=== PATIENT | female | born 1950 | race African-American/Black ===

== ENCOUNTER 2017-09-02 07:04 | Inpatient (IN) | payer OTHER ==
[2017-09-02 07:25] VITALS: BMI 32.5
[2017-09-02 08:38] LABS: BASO % 0.9 % (0-2.0); EOS % 6.3 % (0-4.5); HEMATOCRIT 34.6 % (32.4-45.2); HEMOGLOBIN 11.2 GM/dL (10.7-15.3); LYMPH % 26.8 % (8-40); MCH 27.1 pg (25.7-33.7); MCHC 32.4 g/dl (32.0-36.0); MEAN CELL VOLUME 83.9 fl (80-96); MEAN PLT VOLUME 8.5 fl (7.5-11.1); MONO % 9.7 % (3.8-10.2); NEUT % 56.3 % (42.8-82.8); PLATELET COUNT 261 K/MM3 (134-434); RBC 4.12 M/mm3 (3.60-5.2); RDW 14.3 % (11.6-15.6)
--- NOTE | 2017-09-02 08:42 | PDOC ---
History of Present Illness - General Chief Complaint: Revisit, Lab Variance Stated Complaint: PCP: SENT/ LAB WORK Time Seen by Provider: 09/02/17 07:47 History Source: Patient Exam Limitations: No Limitations - History of Present Illness Initial Comments: 09/02/17 08:37 67-year-old female with history of aortic aneurysm with valve replacement last August was sent here by her PCP for positive blood cultures which were obtained on Tuesday after patient complaints of feeling fatigued and mildly dizzy. Patient recently had a UTI which she states completed the antibiotics for. Patient has no other complaints at this time including fever/chills. Patient is followed by Dr. Stephanie Marcum for primary care. Timing/Duration: unsure Severity: mild Associated Symptoms: reports: weakness Past History - Past Medical History Allergies/Adverse Reactions: Allergies Allergy/AdvReac Type Severity Reaction Status Date / Time Penicillins Allergy Verified 09/02/17 07:20 Home Medications: Ambulatory Orders Amlodipine Besylate [Norvasc -] 5 mg PO DAILY 04/02/15 Acetaminophen [Tylenol .Regular Strength -] 650 mg PO Q6H PRN #0 tablet Asthma: Yes (bronchitis) Cancer: No Cardiac Disorders: No CVA: No COPD: No CHF: No DVT: No Dementia: No Diabetes: No Disorders: No HTN: No (ON NORVASC PROPHYLACTICALLY FOR ANEURYSM X 5+ YEARS) Hypercholesterolemia: No Liver Disease: No Thyroid Disease: No - Surgical History Cardiac Surgery: Yes (AEORTIC VALVE REPLACEMENT) Neurologic Surgery: Yes (back sx) Orthopedic Surgery: Yes (rt toe) - Immunization History Immunization Up to Date: Yes (FLU AND PNA) - Suicide/Smoking/Psychosocial Hx Smoking History: Never smoked Have you smoked in the past 12 months: No Information on smoking cessation initiated: No Hx Alcohol Use: No Drug/Substance Use Hx: No Substance Use Type: None Hx Substance Use Treatment: No Patient Lives Alone: No Review of Systems - Review of Systems Able to Perform ROS?: No Constitutional: Yes: Malaise, Weakness HEENTM: No: Symptoms Reported Respiratory: No: Symptoms reported Cardiac (ROS): No: Symptoms Reported ABD/GI: No: Symptoms Reported : No: Symptoms Reported Musculoskeletal: No: Symptoms Reported Integumentary: No: Symptoms Reported Neurological: Yes: Weakness Hematologic/Lymphatic: Yes: See HPI *Physical Exam - Vital Signs Last Vital Signs Temp Pulse Resp BP Pulse Ox 98.2 F 67 18 152/84 98 09/02/17 07:20 09/02/17 07:20 09/02/17 07:20 09/02/17 07:20 09/02/17 08:05 - Physical Exam General Appearance: Yes: Nourished, Appropriately Dressed. No: Apparent Distress HEENT: positive: EOMI, PRASANNA. negative: Pale Conjunctivae Neck: positive: Normal Thyroid, Supple Respiratory/Chest: positive: Lungs Clear, Normal Breath Sounds. negative: Respiratory Distress, Accessory Muscle Use Cardiovascular: positive: Regular Rhythm, Regular Rate. negative: Murmur Gastrointestinal/Abdominal: positive: Soft. negative: Tenderness Extremity: positive: Normal Capillary Refill. negative: Pedal Edema Integumentary: positive: Normal Color, Warm, Moist Neurologic: positive: Motor Strength 5/5 (ambulatory) ED Treatment Course - LABORATORY CBC & Chemistry Diagram: 09/02/17 08:00 09/02/17 08:40 - RADIOLOGY Radiology Studies Ordered: Category Date Time Status CHEST X-RAY PORTABLE* [RAD] Stat Radiology 09/02/17 08:36 Ordered Medical Decision Making - Medical Decision Making 09/02/17 08:39 Patient sent here for evaluation of positive blood cultures that were obtained on Tuesday and resulted last night. Case discussed with patient's primary care physician Dr. Stephanie Marcum who states 2 bottles out of 4 were positive for gram positive cocci in clusters. Patient also with recent aortic valve replacement. Patient will be admitted to Dr. Cassia Osorio. Labs were sent and will consult ID . 09/02/17 09:[address] Quang Carvalho and will admit patient to [facility]. Awaiting fax from [facility] where patient had labs sent. 09/02/17 09:16 Laboratory Tests 09/02/17 09/02/17 08:00 08:20 WBC 6.0 Hgb 11.2 D Hct 34.6 D Neutrophils % 56.3 Urine Protein 1+ H Ur Leukocyte Esterase Negative Urine WBC (Auto) 1 Urine RBC (Auto) 1 *DC/Admit/Observation/Transfer Diagnosis at time of Disposition: Positive blood cultures - Discharge Dispostion Decision to Admit order: Yes - Referrals Referrals: Stephanie Marcum MD [Primary Care Provider] - - Patient Instructions - Post Discharge Activity
[2017-09-02 08:48] LABS: URINE APPEARANCE CLEAR; URINE BILIRUBIN NEGATIVE (<2.0 mg/dL); URINE COLOR YELLOW; URINE GLUCOSE (UA) NEGATIVE (NEGATIVE); URINE KETONE NEGATIVE (NEGATIVE); URINE LEUK ESTERASE NEGATIVE (NEGATIVE); URINE NITRITE NEGATIVE (NEGATIVE); URINE UROBILINOGEN NEGATIVE mg/dL (0.2-1.0)
[2017-09-02 08:52] LABS: URINE PROTEIN 1+ (NEGATIVE)
[2017-09-02 08:53] LABS: EPI CELLS RARE /HPF (FEW); URINE HYALINE CAST 27 /lpf; URINE MUCUS RARE
[2017-09-02 09:32] LABS: ALBUMIN 3.6 g/dl (3.4-5.0); ANION GAP 9 (8-16); BILIRUBIN,TOTAL 0.3 mg/dL (0.2-1.0); BLOOD UREA NITROGEN 24 mg/dL (7-18); CALCIUM 9.1 mg/dL (8.5-10.1); CHLORIDE 107 mmol/L (98-107); CO2 23 mmol/L (21-32); CREATININE 1.1 mg/dL (0.55-1.02); GLUCOSE,RANDOM 89 mg/dL (74-106); SODIUM 139 mmol/L (136-145)
[2017-09-02 09:33] LABS: INR 2.19 (0.82-1.09); PROTHROMBIN TIME (PATIENT) 24.8 SEC (9.7-13.0)
[2017-09-02 09:34] LABS: ALK PHOS 79 U/L (45-117); SGPT/ALT 22 U/L (12-78); TOT PROT 8.1 g/dl (6.4-8.2)
[2017-09-02 09:35] LABS: SGOT/AST 36 U/L (15-37)
--- NOTE | 2017-09-02 09:37 | EKG ---
Test Reason : Blood Pressure : / mmHG Vent. Rate : 063 BPM Atrial Rate : 063 BPM P-R Int : 174 ms QRS Dur : 148 ms QT Int : 458 ms P-R-T Axes : 044 -74 084 degrees QTc Int : 468 ms SINUS RHYTHM WITH PREMATURE SUPRAVENTRICULAR COMPLEXES LEFT AXIS DEVIATION LEFT BUNDLE BRANCH BLOCK ABNORMAL ECG Confirmed by MERLIN HORNE MD ([id number]) on 09/02/2017 9:36:51 AM Referred By: Confirmed By:MERLIN HORNE MD
--- NOTE | 2017-09-02 10:51 | HP ---
Admitting History and Physical - Primary Care Physician PCP: Quang Osorio - Admission Chief Complaint: Positive blood cultures History of Present Illness: Pt with significant PMHx/o Aortic Ascending Aneurysm Sx and Bioprosthetic Aortic Valve Replacement (August [address] [facility]) and A Fib ( developed post surgery, on AC), recent UTI (treated with antibiotic), was referred by her PCP (Dr. Shana Marcum) to ER for positive BCX evaluation and treatment. Pt recently c/o weakness, dizziness when walking; no fever, chills, palpitations, CP. History Source: Patient Limitations to Obtaining History: No Limitations - Past Medical History Cardiovascular: Yes: AFIB, Other (Aortic aneurysm, s/p Sx) Pulmonary: Yes: Bronchitis Gastrointestinal: Yes: GI Bleed (Rectal bleed), Other (colon polyps) Heme/Onc: Yes: Anemia (secondary to GIB) - Past Surgical History Past Surgical History: Yes: Upper Endoscopy Additional Past Surgical History: Ascending Aortic Aneurysm Repair and AVR (August 2016) - Smoking History Smoking history: Never smoked Have you smoked in the past 12 months: No - Alcohol/Substance Use Hx Alcohol Use: No History of Substance Use: reports: None Home Medications - Allergies Allergies/Adverse Reactions: Allergies Allergy/AdvReac Type Severity Reaction Status Date / Time Penicillins Allergy Verified 09/02/17 07:20 - Home Medications Home Medications: Ambulatory Orders Aspirin [ASA -] 81 mg PO HS 09/02/17 Famotidine 20 mg PO BID 09/02/17 Ibuprofen 600 mg PO Q8H PRN 09/02/17 Losartan Potassium 25 mg PO DAILY 09/02/17 Metoprolol Succinate 25 mg PO DAILY 09/02/17 Multivitamin [Daily Multiple Vitamin] 1 each PO DAILY 09/02/17 Warfarin Na [Coumadin -] 8 mg PO HS 09/02/17 Family Disease History - Family Disease History Family Disease History: CA: Father (colon,"kidney cancer"), Mother (colon, pancreatic ca) Review of Systems - Review of Systems Constitutional: reports: Weakness. denies: Chills, Fever, Night Sweats Eyes: denies: Blurred Vision, Double Vision HENT: denies: Ear Discharge, Ear Pain, Nasal Congestion, Throat Pain, Toothache Neck: denies: Stiffness, Tenderness Cardiovascular: denies: Chest Pain, Edema, Palpitations Respiratory: denies: Cough, Hemoptysis, SOB on Exertion Gastrointestinal: denies: Abdominal Pain, Diarrhea, Nausea, Vomiting Genitourinary: denies: Burning, Discharge Musculoskeletal: denies: Back Pain, Joint Swelling, Muscle Pain Integumentary: denies: Bruising, Rash Neurological: denies: Change in LOC, Incoordination, Numbness Endocrine: denies: Excessive Sweating, Intolerance to Cold Hematology/Lymphatic: denies: Easily Bruised, Excessive Bleeding Psychiatric: denies: Anxiety, Depression Physical Examination Vital Signs: Vital Signs Temperature 98.2 F 09/02/17 07:20 Pulse Rate 67 09/02/17 07:20 Respiratory Rate 18 09/02/17 07:20 Blood Pressure 152/84 09/02/17 07:20 O2 Sat by Pulse Oximetry (%) 98 09/02/17 08:05 Constitutional: Yes: No Distress, Calm Eyes: Yes: Conjunctiva Clear, EOM Intact, PERRL HENT: No: Nasal Congestion, Pharyngeal Erythema, Rhinnorhea, Thrush Neck: Yes: Trachea Midline. No: Lymphadenopathy Cardiovascular: Yes: Regular Rate and Rhythm, S1, S2 Respiratory: Yes: Regular, CTA Bilaterally. No: Rales Gastrointestinal: Yes: Normal Bowel Sounds, Soft. No: Hepatomegaly, Tenderness , Vomiting ...Rectal Exam: Yes: Deferred Renal/: No: CVA Tenderness - Left, CVA Tenderness - Right Breast(s): Yes: Other (deferred) Musculoskeletal: No: Back Pain, Joint Stiffness, Joint Swelling Extremities: No: Cold, Cool, Cyanosis Edema: No Integumentary: No: Erythema, Rash Neurological: Yes: Alert, Oriented, Other (motor and sensory examination is symmetric in UE/ LE/ face) Labs: CBC, BMP 09/02/17 08:00 09/02/17 08:40 Imaging - Results Chest X-ray: Report Reviewed Problem List - Problems (1) Positive blood cultures Code(s): R78.81 - BACTEREMIA (2) H/O aortic valve replacement Code(s): Z95.2 - PRESENCE OF PROSTHETIC HEART VALVE (3) S/P ascending aortic aneurysm repair Code(s): Z98.890 - OTHER SPECIFIED POSTPROCEDURAL STATES; Z86.79 - PERSONAL HISTORY OF OTHER DISEASES OF THE CIRCULATORY SYSTEM (4) Penicillin allergy Code(s): Z88.0 - ALLERGY STATUS TO PENICILLIN Assessment/Plan Repeate BCX ID consult- case was d/w Dr. Briggs; IV abtx (Vanco) Cardio Consult To monitor INR ECHO To obtain records from Dr. Marcum office AM labs
[2017-09-02] MEDS ORDERED: VANCOMYCIN 1 GRAM (PRE-DOCKED) 1,000 MG/250 ML BAG IVPB ONE (11:41)
[2017-09-02] MEDS ORDERED: VANCOMYCIN 1,500 MG in DEXTROSE 5%-WATER - 500 ML IVPB ONE (12:00)
--- NOTE | 2017-09-02 12:15 | PN ---
Progress Note (short form) - Note Progress Note: ID consult to follow Seen in ED sent by PMD for +blood culture- drawn at [facility] on Tuesday- apparently gpc clusters 2 bottles, further info and fax are pending she has a history of +AVR and aortic aneurysm repair August 2016 at [facility] with Dr Ramsay has felt fatigued since the prodedure she has been feeling weaker then usual with sob with stairs and dizziness with walking this last week she was seen by her Business Development Specialist on Tuesday for INR check- blood cultures were ordered at that time no fevers or chills no skin sores no dental work penicillin allergy- itchy and hives recent cefuroxime po for UTI about 2 weeks ago r/o endocarditis history of prosthetic aortic valve, aortic aneurysm repair repeat blood cultures have been sent esr/crp will start vancomycin while awaiting further information echo ekg cardiology to see d/w dr handley d/w cardiology Problem List - Problems (1) Positive blood cultures Code(s): R78.81 - BACTEREMIA (2) History of prosthetic aortic valve Code(s): Z95.2 - PRESENCE OF PROSTHETIC HEART VALVE (3) Penicillin allergy Code(s): Z88.0 - ALLERGY STATUS TO PENICILLIN
--- NOTE | 2017-09-02 14:51 | CON.CARD ---
Cardiology Consult (text) - Consultation Consultation Note: CC: r/o endocarditis 67 yo with hx of aortic aneurysm with valve replacement c/b post-op afib on coumadin, htn, LBBB, bronchitis and recent UTI this month s/p abx course who presents with + blood cultures. chronic agarwal, fatigue since surgery, palps, stable. Patient with hot flashes x 2. +dizziness, unstable gait x 2 weeks. 2 weeks treated for uti with abx. Had blood cx's drawn b/c of sx's of ongoing dizziness --> positive for gram + cocci. unclear how many bottles. Denies cp, orthopnea, pnd, le edema, bleeding, claudication or transient neurologic symptoms Denies f/c, n/v/d, cough, congestion, rash, h/a, visual disturbances. pmhx/pshx: per hpi, additionally toe surgery and back surgery fam hx: no cardiac history social hx; Never smoked ros: per hpi Ambulatory Orders Aspirin [ASA -] 81 mg PO HS 09/02/17 Famotidine 20 mg PO BID 09/02/17 Ibuprofen 600 mg PO Q8H PRN 09/02/17 Losartan Potassium 25 mg PO DAILY 09/02/17 Metoprolol Succinate 25 mg PO DAILY 09/02/17 Multivitamin [Daily Multiple Vitamin] 1 each PO DAILY 09/02/17 Warfarin Na [Coumadin -] 8 mg PO HS 09/02/17 Current Medications Vancomycin HCl 1,250 mg/ (Dextrose) 250 mls @ 250 mls/2 hr IVPB DAILY@1200 KHALIF ; Protocol Vital Signs - 24 hr 09/02/17 09/02/17 09/02/17 07:20 08:05 13:39 Temperature 98.2 F 98.9 F Pulse Rate 67 66 Respiratory 18 20 Rate Blood Pressure 152/84 143/95 O2 Sat by Pulse 100 98 Oximetry (%) 09/02/17 13:52 Temperature Pulse Rate Respiratory Rate Blood Pressure O2 Sat by Pulse 96 Oximetry (%) Intake & Output 08/31/17 09/01/17 09/02/17 09/03/17 07:59 07:59 07:59 07:59 Weight 196 lb 196 lb NAD, calm JVD flat, neck supple ctab, nl effort rrr nl s1, s2. no 2/6 sys murmur at sternal border + bs soft nt nd ext without e/c/c + dp/pt, no carotid bruits no jaundice, diaphoresis aaox3 CBC, BMP 09/02/17 08:00 09/02/17 08:40 Laboratory Tests 09/02/17 09/02/17 09/02/17 08:00 08:40 08:40 INR 2.19 H Lactic Acid 1.5 Total Bilirubin 0.3 D AST 36 ALT 22 Alkaline Phosphatase 79 Albumin 3.6 EKG LBBB Echo: EF 50-55%. nl rv size/fn. 1+ mr/tr. bioprosthetic aortic valve, mg 17. cxr: no acute pathology post-op echo MSH: bio avr (2.4, 10/02) 67 yo with hx of aortic aneurysm with valve replacement 08/2016, c/b post-op afib on coumadin, htn, LBBB, bronchitis and recent UTI this month s/p abx course who presents with + blood cultures. bioavr with + bcx - resume asa - check esr/crp - awaiting further information from [facility] regarding details of blood cultures and ID input on suspicion for endocarditis/need for ROBERT. afib - currently in sr, rate controlled. - con't coumadin per pmd/inr. htn - monitor on current outpatient regimen.
[2017-09-02] MEDS ORDERED: IBUPROFEN 600 MG TABLET (FP) PO PRN (16:58)
[2017-09-02] MEDS ORDERED: WARFARIN NA 5 MG, WARFARIN NA 3 MG PO SCH (18:00)
[2017-09-02] MEDS ORDERED: WARFARIN NA 3 MG TABLET ONE (18:00)
[2017-09-02] MEDS ORDERED: WARFARIN NA 5 MG TABLET (UD) ONE (18:00)
--- NOTE | 2017-09-02 18:46 | CONS ---
INFECTIOUS DISEASE CONSULTATION DATE OF CONSULTATION: 09/02/2017 REQUESTING PHYSICIAN: Quang Osorio MD This is a 67-year-old woman who was sent to the emergency room by her PMD for positive blood cultures which were drawn at the [facility] on Tuesday, apparently gram-positive cocci in clusters in 2 bottles. Further information and facts are pending. She has a history of an aortic valve replacement and aortic aneurysm repair in August 2016 at [facility] with Dr. Ramsay. She has felt fatigued since the procedure. For the last week, she has been feeling weaker than usual with shortness of breath with stairs and dizziness with walking. She was seen by her private investigator surveillance, at [facility] on Tuesday for an INR check. Blood cultures were ordered at that time, and she was called by her PMD and referred to the ER. She denies any fevers or chills. She has no skin sores. She has had no dental work. She had some dental work prior to the surgery in August but has not gone for any since that time. She reports an allergy to PENICILLIN which she describes as being itchy and having hives, although recently she took cefuroxime orally for a UTI about 2 weeks ago. It was prescribed by her private investigator surveillance. PAST MEDICAL HISTORY: Notable for a history of this aortic aneurysm, bronchitis, and colon polyps. SURGICAL HISTORY: For the aortic valve replacement as well as aneurysm repair. In 2007, she also had back surgery. ALLERGIES: She is allergic to PENICILLIN as mentioned before. MEDICATIONS AT HOME: Include famotidine, multivitamins, warfarin, aspirin, ibuprofen, metoprolol, and losartan. FAMILY HISTORY: Noncontributory. SOCIAL HISTORY: She lives alone. She is . She has 2 adult children. There is no history of any recent travel. PHYSICAL EXAMINATION: General: She is awake and alert. Vital Signs: Temperature is 98.2, pulse of 67, blood pressure 152/84, respiratory rate of 18. Her stated weight is 89.9 kg. She is saturating 100% on room air. HEENT: She is normocephalic. Her eyes are anicteric. She has no conjunctival hemorrhages. She has no thrush. She has some poor dentition. Heart: Regular rate and rhythm. She has a 2/6 systolic ejection murmur on the left upper sternal border. She has a well-healed sternal scar. Lungs: Clear to auscultation. Abdomen: Soft, nontender. Extremities: Without edema. LABORATORY DATA: Her labs are notable for a white count of 6, hemoglobin 11.2, platelets are 261. INR is 2.1. BUN is 24 and creatinine 1.1 with normal LFTs. Urinalysis has 1 white cell. Blood cultures and urine cultures have been sent. Chest x-ray shows no acute chest pathology. In summary, this is a 67-year-old woman with a history of aortic valve replacement and aneurysm repair, who was admitted with positive blood cultures, rule out endocarditis. Repeat blood cultures have been sent. We will check a sedimentation rate, CRP. We will start vancomycin while awaiting further information. She needs an echo, an EKG, and a cardiology evaluation. This was all discussed with Dr. Osorio as well as Cardiology. Further recommendations to follow based on her clinical course. PRESTON TANG M.D. [id number]
[2017-09-02] MEDS: RANITIDINE HCL 150 MG TABLET (FP) PO SCH (21:25)
[2017-09-02] MEDS ORDERED: ASPIRIN 81 MG CHEWABLE TABLETS PO SCH (22:00)
[2017-09-02] MEDS ORDERED: WARFARIN NA 1 MG TABLET (FP) PO SCH (22:00)
[2017-09-03] MEDS ORDERED: VANCOMYCIN 1,250 MG in DEXTROSE 5%-WATER - 250 ML IVPB SCH ×2 (03:00→10:00)
[2017-09-03 08:05] LABS: HEMATOCRIT 34.4 % (32.4-45.2); HEMOGLOBIN 11.3 GM/dL (10.7-15.3); MCH 27.2 pg (25.7-33.7); MCHC 32.9 g/dl (32.0-36.0); MEAN CELL VOLUME 82.6 fl (80-96); MEAN PLT VOLUME 8.1 fl (7.5-11.1); PLATELET COUNT 254 K/MM3 (134-434); RBC 4.17 M/mm3 (3.60-5.2); RDW 14.2 % (11.6-15.6); WHITE BLOOD COUNT 5.9 K/mm3 (4.0-10.0)
[2017-09-03 08:29] LABS: INR 2.26 (0.82-1.09); PROTHROMBIN TIME (PATIENT) 25.5 SEC (9.7-13.0)
[2017-09-03 08:39] LABS: ALBUMIN 3.4 g/dl (3.4-5.0); ANION GAP 6 (8-16); BLOOD UREA NITROGEN 22 mg/dL (7-18); CALCIUM 9.2 mg/dL (8.5-10.1); CHLORIDE 106 mmol/L (98-107); CO2 29 mmol/L (21-32); GLUCOSE,RANDOM 90 mg/dL (74-106); POTASSIUM 4.6 mmol/L (3.5-5.1); SGOT/AST 19 U/L (15-37); SGPT/ALT 19 U/L (12-78); SODIUM 141 mmol/L (136-145)
[2017-09-03 08:41] LABS: ALK PHOS 75 U/L (45-117); BILIRUBIN,TOTAL 0.3 mg/dL (0.2-1.0); TOT PROT 7.5 g/dl (6.4-8.2)
--- NOTE | 2017-09-03 09:29 | PN ---
Progress Note, Physician Chief Complaint: positive blood cultures, night sweats History of Present Illness: 67 yo female here for positive blood cultures. sees dr marcum pmd at [facility], and kierra documentation billing clerk there. was referred for bio-AVR and ascending aorta repair 08/2016, done by Buster Dee. approx one mo ago she began noticing fatigue and night sweats. she also began noting intermittent sob on exertion, e.g. stairs, with assctd wheezing--but not consistent, mostly if walks fast. had outpt blood cultures last week which grew gpc in clusters in 2 of 4 bottles. she was told to come in for admission and w/u. presently feels well. she denies any sob at rest, orthopnea. denies leg swelling. denies chest pain, palpitations, syncope PMH: HTN afib bronchitis - Current Medication List Current Medications: Active Medications Aspirin (Asa -) 81 mg PO HS [facility] Last Admin: 09/02/17 21:25 Dose: 81 mg Vancomycin HCl 1,250 mg/ (Dextrose) 250 mls @ 166.667 mls/hr IVPB Q12H [facility]; Protocol Last Admin: 09/03/17 02:11 Dose: 166.667 mls/hr Ibuprofen (Motrin -) 600 mg PO Q8H PRN PRN Reason: arthritic pain Losartan Potassium (Cozaar -) 25 mg PO DAILY [facility] Metoprolol Succinate (Toprol Xl -) 25 mg PO DAILY [facility] Multivitamins/Minerals/Vitamin C (Tab-A-Vit -) 1 tab PO DAILY [facility] Ranitidine HCl (Zantac -) 150 mg PO BID [facility] Last Admin: 09/02/17 21:25 Dose: 150 mg Warfarin Sodium 5 mg/ Warfarin (Sodium 3 mg) 8 mg PO DAILY@1800 [facility] Last Admin: 09/02/17 18:12 Dose: 8 mg - Objective Vital Signs: Vital Signs Temperature 97.8 F 09/03/17 06:18 Pulse Rate 73 09/03/17 06:18 Respiratory Rate 20 09/03/17 06:18 Blood Pressure 138/68 09/03/17 06:18 O2 Sat by Pulse Oximetry (%) 98 09/02/17 21:00 Constitutional: Yes: No Distress, Calm Eyes: No: Sclera Icterus HENT: No: Nasal Congestion Cardiovascular: Yes: Regular Rate and Rhythm, Murmur (2/6 early JESUS lusb, no diast murmur), S1, S2, Other (PMI non diplaced). No: JVD, Gallop Respiratory: Yes: CTA Bilaterally. No: Accessory Muscle Use, Rales, Wheezes Gastrointestinal: Yes: Normal Bowel Sounds, Soft. No: Tenderness Musculoskeletal: Yes: Other (No kyphosis) Extremities: No: Cold, Cyanosis Edema: No Integumentary: No: Jaundice Neurological: Yes: Alert, Oriented (x3) Psychiatric: No: Agitated Labs: CBC, BMP 09/03/17 07:30 09/03/17 07:30 INR, PTT INR 2.26 (0.82-1.09) H 09/03/17 07:30 Assessment/Plan EKG: LBBB, new vs 2015 Echo: EF 50-55%. nl rv size/fn. 1+ mr/tr. bioprosthetic aortic valve, mg 17-- NO VEGETATION SEEN, NO AI post-op Echo MSH: bio avr (2.4, 10/02) cxr: no acute pathology 67 yo with hx of aortic aneurysm with valve replacement 08/2016, c/b post-op afib on coumadin, HTN, LBBB, bronchitis and recent UTI this month s/p abx course who presents with + blood cultures. h/o bioavr with + bcx - outpt BCx's with Dr. Marcum (pmd) at [facility] reportedly growing gpc clusters 2 bottles--ID service awaiting final organism identification - s/p bioAVR and aortic aneurysm repair August 2016 at [facility] with Dr Dee ( who is no longer at [facility]) - LBBB on ekg here, new vs 2016--? if truly new (which can be seen in cases of paravalvular abscess affecting conduction system) - continue tele monitoring, no AV block/bradyarrhythmia seen thus far - pt needs ROBERT to assess bioAVR leaflets and paravalvular tissue, including isthmus btw AV and MV, as well as to assess aorta graft region for signs of infection. may need MRI or PET to look for evidence of aorta graft thickening/ infection. - if she remains without signs of CHF, peripheral embolic, or hemodynamics suggesting pre-cardiogenic shock state, would prefer to transfer pt to tertiary center for these studies (including ROBERT, which can be very difficult to make definitive dx on, in light of post-surgical changes/suture material, as well as shadowing...prefer not to have her undergo this study twice if safe to wait) - discussed case with dr dee, pt's original surgeon, but he has left the area and is [place]. he recommends dr martino at [facility] for this evaluation ( and reop, if needed) given his expertise in endocarditis surgery. case d/w'd dr martino who agrees to accept patient for transfer. - will transfer pt to telemetry - CRP undetectable, ESR 30s--makes paravalvular abscess or intravascular infection less likely. no Janeway lesions/Osler's nodes - she is on aspirin for valve prophylaxis, despite also being on coumadin for afib--unclear that bioprosthetic valve requires both agents, but will defer to her outpt documentation billing clerk and not change prior treatment plan afib - currently in sr, rate controlled. - con't coumadin per pmd/inr. htn - reasonably controlled bp here - cont home meds
[2017-09-03] MEDS ORDERED: PT OWN MED DRAWER 7, Y5N ONE (09:40)
[2017-09-03] MEDS: RANITIDINE HCL 150 MG TABLET (FP) PO SCH (09:50)
[2017-09-03] MEDS ORDERED: LOSARTAN POTASSIUM 25 MG TABLET PO SCH (10:00)
[2017-09-03] MEDS ORDERED: metoPROLOL SUCCINATE 25 MG TAB.SR.24H (FP) PO SCH (10:00)
[2017-09-03] MEDS ORDERED: MULTIVITAMINS (DAILY MVI) TABLET (FP) PO SCH (10:00)
[2017-09-03 10:07] VITALS: PULSE 68
--- NOTE | 2017-09-03 11:04 | PN ---
Progress Note (short form) - Note Progress Note: now gives history of night sweats for the last month! clinically feels well today Vital Signs Period Temp Pulse Resp BP Sys/Lea Pulse Ox Last 24 Hr 97.8 F-98.9 F 54-73 18-20 132-155/68-95 96-99 cor-rrr lungs clear abd soft,nt ext no edema no stigmata of endocarditis on exam- hands/feet/eyes without lesions CBC, BMP 09/03/17 07:30 09/03/17 07:30 Laboratory Tests 09/03/17 09/03/17 07:30 07:30 ESR 37 H C-Reactive Protein < 0.3 Microbiology 09/02/17 08:20 Urine - Urine Clean Catch Urine Culture - Final NO GROWTH OBTAINED 09/02/17 08:11 Blood - Peripheral Venous Blood Culture - Preliminary NO GROWTH OBTAINED AFTER 24 HOURS, INCUBATION TO CONTINUE FOR 4 DAYS. 09/02/17 08:00 Blood - Peripheral Venous Blood Culture - Preliminary NO GROWTH OBTAINED AFTER 24 HOURS, INCUBATION TO CONTINUE FOR 4 DAYS. a/p r/o endocarditis history of prosthetic aortic valve, aortic aneurysm repair repeat blood cultures have been sent esr/crp-normal continue vancomycin while awaiting further information outpatient blood cultures still pending d/w Dr Strickland- for transfer to [place] where surgery was done Problem List - Problems (1) Positive blood cultures Code(s): R78.81 - BACTEREMIA (2) History of prosthetic aortic valve Code(s): Z95.2 - PRESENCE OF PROSTHETIC HEART VALVE (3) Penicillin allergy Code(s): Z88.0 - ALLERGY STATUS TO PENICILLIN
--- NOTE | 2017-09-03 12:14 | PN ---
Progress Note, Physician History of Present Illness: Pt states that is less tired today. Pt w/o SOB, CP, palpitations, dizziness, abd pain. - Current Medication List Current Medications: Active Medications Aspirin (Asa -) 81 mg PO HS [facility] Last Admin: 09/02/17 21:25 Dose: 81 mg Vancomycin HCl 1,250 mg/ (Dextrose) 250 mls @ 166.667 mls/hr IVPB Q12H [facility]; Protocol Last Admin: 09/03/17 02:11 Dose: 166.667 mls/hr Ibuprofen (Motrin -) 600 mg PO Q8H PRN PRN Reason: arthritic pain Losartan Potassium (Cozaar -) 25 mg PO DAILY [facility] Last Admin: 09/03/17 09:50 Dose: 25 mg Metoprolol Succinate (Toprol Xl -) 25 mg PO DAILY [facility] Last Admin: 09/03/17 09:50 Dose: 25 mg Multivitamins/Minerals/Vitamin C (Tab-A-Vit -) 1 tab PO DAILY [facility] Last Admin: 09/03/17 09:50 Dose: 1 tab Ranitidine HCl (Zantac -) 150 mg PO BID [facility] Last Admin: 09/03/17 09:50 Dose: 150 mg Warfarin Sodium 5 mg/ Warfarin (Sodium 3 mg) 8 mg PO DAILY@1800 [facility] Last Admin: 09/02/17 18:12 Dose: 8 mg - Objective Vital Signs: Vital Signs Temperature 97.8 F 09/03/17 06:18 Pulse Rate 68 09/03/17 09:00 Respiratory Rate 18 09/03/17 09:00 Blood Pressure 132/94 09/03/17 09:00 O2 Sat by Pulse Oximetry (%) 99 09/03/17 09:00 Constitutional: Yes: No Distress, Calm Cardiovascular: Yes: Regular Rate and Rhythm, S1, S2 Respiratory: Yes: Regular, CTA Bilaterally. No: Rales Gastrointestinal: Yes: Normal Bowel Sounds, Soft. No: Tenderness Edema: No Neurological: Yes: Alert, Oriented Labs: CBC, BMP 09/03/17 07:30 09/03/17 07:30 INR, PTT INR 2.26 (0.82-1.09) H 09/03/17 07:30 Problem List - Problems (1) Positive blood cultures Code(s): R78.81 - BACTEREMIA (2) H/O aortic valve replacement Assessment/Plan: bioprosthetic valve Code(s): Z95.2 - PRESENCE OF PROSTHETIC HEART VALVE (3) S/P ascending aortic aneurysm repair Code(s): Z98.890 - OTHER SPECIFIED POSTPROCEDURAL STATES; Z86.79 - PERSONAL HISTORY OF OTHER DISEASES OF THE CIRCULATORY SYSTEM (4) Penicillin allergy Code(s): Z88.0 - ALLERGY STATUS TO PENICILLIN (5) Atrial fibrillation Assessment/Plan: on AC Code(s): I48.91 - UNSPECIFIED ATRIAL FIBRILLATION Assessment/Plan Pt now transferred to Telemetry BCX negative so far ID, Cardio consults and f/u appreciated. Pt on IV Vanco. Case was d/w ; to transfer pt to [facility] for further evaluation. AM labs; monitor INR.
[2017-09-03 14:02] VITALS: BP 154/88; TEMP 98.6
== END 2017-09-03 16:16 | disposition short-term general hospital (02) | DRG 307 ==
LOC: JER 07:04 → JERBED 09:13 → J5S 14:05 → J4W 09-03 12:14
PROVIDERS: ADMIT Specialist; ATTEND Specialist
DX: I38 Endocarditis, valve unspecified (principal); R78.81 Bacteremia; Z95.2 Presence of prosthetic heart valve; I10 Essential (primary) hypertension; I44.7 Left bundle-branch block, unspecified; I48.91 Unspecified atrial fibrillation; Z88.0 Allergy status to penicillin
CPT/HCPCS: 36415; 71045-TC-FY; 80053; 81003; 81015; 83605; 85025; 85027; 85610; 85651; 86140; 87040; 87086; 93005; 93010; 93306-TC; 99284-25; G0480

== ENCOUNTER 2018-03-20 14:36 | Emergency (ER) | payer OTHER ==
--- NOTE | 2018-03-20 14:44 | PDOC ---
Rapid Medical Evaluation Chief Complaint: Pain Medical Evaluation: Allergies Allergy/AdvReac Type Severity Reaction Status Date / Time Penicillins Allergy Verified 09/02/17 07:20 03/20/18 14:43 pt with pain to left knee felt a clicking sensation yesterday.
[2018-03-20 14:45] VITALS: BP 126/73; PULSE 80; TEMP 98.2; BMI 32.9
--- NOTE | 2018-03-20 15:20 | PDOC ---
History of Present Illness - General Chief Complaint: Pain Stated Complaint: Injury Time Seen by Provider: 03/20/18 15:18 History Source: Patient Exam Limitations: No Limitations - History of Present Illness Initial Comments: 03/20/18 15:31 Came for evaluation of left knee pain. States was traveling yesterday and while getting up and down from airplane seat felt a crack in her left knee and had difficulty straightening it since that time. Denies any significant injury/fall or exercise change. Denies fevers, redness infectious process. Occurred: reports: yesterday Severity: reports: moderate, severe Pain Location: reports: lower extremity (left knee ) Method of Injury: Yes: unknown Modifying Factors: improves with: None Loss of Consciousness: no loss of consciousness Associated Symptoms (Fall): denies symptoms Past History - Travel Traveled outside of the country in the last 30 days: No Close contact w/someone who was outside of country & ill: No - Past Medical History Allergies/Adverse Reactions: Allergies Allergy/AdvReac Type Severity Reaction Status Date / Time Penicillins Allergy Verified 03/20/18 14:45 Home Medications: Ambulatory Orders Aspirin [ASA -] 81 mg PO HS 09/02/17 Famotidine 20 mg PO BID 09/02/17 Losartan Potassium 25 mg PO DAILY 09/02/17 Metoprolol Succinate 25 mg PO DAILY 09/02/17 Multivitamin [Daily Multiple Vitamin] 1 each PO DAILY 09/02/17 Warfarin Na [Coumadin -] 8 mg PO HS 09/02/17 Anemia: No Asthma: No (bronchitis) Cancer: No Cardiac Disorders: Yes (aortic valve 08/2016) CVA: No COPD: No CHF: No DVT: No Dementia: No Diabetes: No GI Disorders: No Disorders: No HTN: Yes Hypercholesterolemia: No Liver Disease: No Seizures: No Thyroid Disease: No - Surgical History Abdominal Surgery: No Appendectomy: No Cardiac Surgery: Yes (AORTIC VALVE REPLACEMENT) Cholecystectomy: No Lung Surgery: No Neurologic Surgery: Yes (back sx) Orthopedic Surgery: Yes (left toe bonion/hammer toe) - Immunization History Immunization Up to Date: Yes (FLU AND PNA) - Suicide/Smoking/Psychosocial Hx Smoking History: Never smoked Have you smoked in the past 12 months: No Hx Alcohol Use: No Drug/Substance Use Hx: No Substance Use Type: None Hx Substance Use Treatment: No Review of Systems - Review of Systems Able to Perform ROS?: Yes Is the patient limited Sami proficient: Yes Constitutional: Yes: Symptoms Reported, See HPI. No: Chills, Fever, Malaise HEENTM: Yes: See HPI. No: Symptoms Reported Respiratory: No: Symptoms reported Musculoskeletal: Yes: Symptoms Reported, See HPI, Joint Pain, Joint Swelling Integumentary: Yes: See HPI. No: Symptoms Reported All Other Systems: Reviewed and Negative *Physical Exam - Vital Signs Last Vital Signs Temp Pulse Resp BP Pulse Ox 98.2 F 80 18 126/73 99 03/20/18 14:40 03/20/18 14:40 03/20/18 14:40 03/20/18 14:40 03/20/18 14:40 - Physical Exam General Appearance: Yes: Nourished, Appropriately Dressed, Apparent Distress, Mild Distress, Moderate Distress HEENT: positive: PRASANNA, Normal ENT Inspection, TMs Normal, Pharynx Normal Neck: positive: Tender, Supple Extremity: positive: Normal Capillary Refill, Tender. negative: Normal Range of Motion (tenderness reproduced along the medial aspect of the left knee with swelling compared to the right knee. Patella is mobile but tender to move. Has reproduce tenderness in posterior fossa also. Range of motion is limited to approximately 50% of normal secondary to pain in the knee capsule. Is ambulatory but walks with limp. Neurovascular intact to foot.) Integumentary: positive: Normal Color, Warm Neurologic: positive: e business specialist II-XII NML intact, Fully Oriented, Alert, Normal Mood/ Affect, Normal Response, Motor Strength 5/5 Moderate Sedation - Procedure Monitoring Vital Signs: Procedure Monitoring Vital Signs Temperature 98.2 F 03/20/18 14:40 Pulse Rate 80 03/20/18 14:40 Respiratory Rate 18 03/20/18 14:40 Blood Pressure 126/73 03/20/18 14:40 O2 Sat by Pulse Oximetry (%) 99 03/20/18 14:40 Progress Note - Progress Note Progress Note: X-ray negative for fractures or dislocation, will recommend splint, and follow up with orthopedics for further evaluation of possible soft tissue testing *DC/Admit/Observation/Transfer Diagnosis at time of Disposition: Strain of knee and leg, left Qualifiers: Encounter type: initial encounter Qualified Code(s): S86.912A - Strain of unspecified muscle(s) and tendon(s) at lower leg level, left leg, initial encounter - Discharge Dispostion Disposition: HOME Condition at time of disposition: Stable Decision to Admit order: No - Referrals Referrals: Vishnu Barraza DO [Staff Physician] - - Patient Instructions Printed Discharge Instructions: DI for Knee Pain Additional Instructions: Rest, ice to area on and off for 15 minutes 4-6 times a day Avoid heavy lifting or exercise until pain and swelling is resolved or until further directed Keep area highly elevated to reduce swelling Use splints/Misha wrap as directed Followup with orthopedist in one to 2 days if not improving, if significantly improved may wait one week for followup with orthopedist May use ibuprofen 2-200 mg tablets every 6 hours as needed for pain - Post Discharge Activity Forms/Work/School Notes: Back to Work
== END 2018-03-20 15:49 | disposition home or self-care (01) ==
LOC: JERFT 14:36
PROC: 2W3MX1Z Immobilization of Left Lower Extremity using Splint (ICD-10-PCS; principal; 2018-03-20)
DX: S89.82XA Other specified injuries of left lower leg, initial encounter (principal); X50.3XXA Overexertion from repetitive movements, initial encounter; X50.9XXA Other and unspecified overexertion or strenuous movements or postures, initial encounter; Y93.89 Activity, other specified; Y92.813 Airplane as the place of occurrence of the external cause; Y99.8 Other external cause status; I10 Essential (primary) hypertension; Z95.2 Presence of prosthetic heart valve; Z79.01 Long term (current) use of anticoagulants
CPT/HCPCS: 29505; 73562-TC-LT-FY; 99281-25